=== PATIENT | female | born 1975 | race Caucasian/White ===

== ENCOUNTER 2017-11-13 03:49 | Day surgery (SDC) | payer BC, OTHER ==
[~2017-11-13] VITALS: Ht 182.9 cm; Wt 99.8 kg
[2017-11-13] MEDS ORDERED: LACTATED RINGERS 1,000 ML IV ONE ×2 (04:19→05:55)
--- NOTE | 2017-11-13 04:27 | ED Abdominal Pain ---
General Chief Complaint: Abdominal/GI Problems Stated Complaint: R AB PAIN Source of Information: Patient History of Present Illness Time Seen By Provider: 04:10 Initial Comments PT C/O SHARP RLQ PAIN SINCE YESTERDAY AFTERNOON C/O CHILLS SINCE LAST PM + NAUSEA, AND VOMITED AND HAD DIARRHEA X 1 JUST PRIOR TO ARRIVAL NO URINARY SYMPTOMS PT HAD BODY ACHES THE LAST COUPLE OF DAYS NO COUGH LAST ATE AT 1800 YESTERDAY PAIN IS WORSE WITH MOVEMENTS AND WALKING, STANDING UPRIGHT LMP--NOW. NORMAL. WITH VASECTOMY PT IS HERE VISITING FROM [place] Allergies and Home Medications Allergies Coded Allergies: cephalexin (Verified Allergy, Unknown, 11/13/17) Home Medications Levothyroxine Sodium 100 Mcg Tablet, (Reported) Liothyronine Sodium 5 Mcg Tablet, (Reported) Sertraline HCl 100 Mg Tablet, (Reported) Review of Systems Constitutional: see HPI, chills, malaise EENTM: No Symptoms Reported Respiratory: No Symptoms Reported Cardiovascular: No Symptoms Reported Gastrointestinal: See HPI, Abdominal Pain, Denies Constipated, Diarrhea, Nausea , Poor Appetite, Denies Poor Fluid Intake, Vomiting Genitourinary: No Symptoms Reported Musculoskeletal: no symptoms reported, No back pain Skin: no symptoms reported Psychiatric/Neurological: No Symptoms Reported Endocrine: No Symptoms Reported Hematologic/Lymphatic: No Symptoms Reported Past Thizsil-Qbvwbb-Cnvuoc Hx Patient Social History Alcohol Use: Denies Use Recreational Drug Use: No Smoking Status: Never a Smoker Recent Foreign Travel: No Contact w/Someone Who Travel: No Surgeries History of Surgeries: Yes Surgeries: Thyroidectomy Respiratory History of Respiratory Disorde: No Cardiovascular History of Cardiac Disorders: No Neurological History of Neurological Disord: No Reproductive System : No Female Reproductive Disorders: Denies Genitourinary History of Genitourinary Disor: No Gastrointestinal History of Gastrointestinal Di: No Musculoskeletal History of Musculoskeletal Dis: No Endocrine History of Endocrine Disorders: Yes (GOITER--S/P THYROIDECTOMY) Endocrine Disorders: Hypothyroidsim HEENT History of HEENT Disorders: No Cancer History of Cancer: No Psychosocial History of Psychiatric Problem: Yes Behavioral Health Disorders: Depression Physical Exam Vital Signs VS - Last 72 Hours, by Label 11/13/17 03:58 Temp 96.9 Pulse 111 Resp 20 B/P (MAP) 112/72 (85) Pulse Ox 96 O2 Delivery Room Air Capillary Refill : General Appearance: WD/WN, no apparent distress, other (WALKS SLIGHTLY BENT AT WAIST AND MOVES SLOWLY) HEENT: PERRL/EOMI Neck: normal inspection Respiratory: normal breath sounds, no respiratory distress, no accessory muscle use Cardiovascular: regular rate, rhythm, no murmur Gastrointestinal: soft, no organomegaly, no pulsatile mass, abnormal bowel sounds (RARE), No distended, guarding, rebound, tenderness, No hernia, No mass, other (+ ROVSING'S. + HEEL TAP. ) Extremities: normal inspection, normal capillary refill Back: no CVA tenderness Neurologic/Psychiatric: no motor/sensory deficits, alert, normal mood/affect, oriented x 3 Skin: normal color, warm/dry, No rash Progress/Results/Core Measures Results/Orders Lab Results Laboratory Tests Test 11/13/17 04:43 11/13/17 05:03 Range/Units White Blood Count 17.8 H 4.3-11.0 10^3/uL Red Blood Count 4.08 L 4.35-5.85 10^6/uL Hemoglobin 11.9 11.5-16.0 G/DL Hematocrit 36 35-52 % Mean Corpuscular Volume 89 80-99 FL Mean Corpuscular Hemoglobin 29 25-34 PG Mean Corpuscular Hemoglobin Concent 33 32-36 G/DL Red Cell Distribution Width 14.0 10.0-14.5 % Platelet Count 339 130-400 10^3/uL Mean Platelet Volume 10.0 7.4-10.4 FL Neutrophils (%) (Auto) 86 H 42-75 % Lymphocytes (%) (Auto) 8 L 12-44 % Monocytes (%) (Auto) 6 0-12 % Eosinophils (%) (Auto) 0 0-10 % Basophils (%) (Auto) 0 0-10 % Neutrophils # (Auto) 15.2 H 1.8-7.8 X 10^3 Lymphocytes # (Auto) 1.4 1.0-4.0 X 10^3 Monocytes # (Auto) 1.1 H 0.0-1.0 X 10^3 Eosinophils # (Auto) 0.0 0.0-0.3 10^3/uL Basophils # (Auto) 0.0 0.0-0.1 10^3/uL Neutrophils % (Manual) 89 % Lymphocytes % (Manual) 4 % Monocytes % (Manual) 5 % Eosinophils % (Manual) 0 % Basophils % (Manual) 0 % Band Neutrophils 0 % Reactive Lymphocytes 2 % Clumped Platelets Blood Morphology Comment NORMAL Sodium Level 139 135-145 MMOL/L Potassium Level 3.6 3.6-5.0 MMOL/L Chloride Level 105 98-107 MMOL/L Carbon Dioxide Level 23 21-32 MMOL/L Anion Gap 11 5-14 MMOL/L Blood Urea Nitrogen 11 7-18 MG/DL Creatinine 0.70 0.60-1.30 MG/DL Estimat Glomerular Filtration Rate > 60 BUN/Creatinine Ratio 16 Glucose Level 120 H 70-105 MG/DL Calcium Level 8.7 8.5-10.1 MG/DL Total Bilirubin 0.7 0.1-1.0 MG/DL Aspartate Amino Transf (AST/SGOT) 19 5-34 U/L Alanine Aminotransferase (ALT/SGPT) 18 0-55 U/L Alkaline Phosphatase 63 40-136 U/L Total Protein 6.9 6.4-8.2 GM/DL Albumin 4.1 3.2-4.5 GM/DL Amylase Level 19 L 25-125 U/L Lipase 4 L 8-78 U/L Serum Test, Qualitative NEGATIVE NEGATIVE Urine Color YELLOW Urine Clarity CLEAR Urine pH 6 5-9 Urine Specific Alexander 1.020 1.016-1.022 Urine Protein NEGATIVE NEGATIVE Urine Glucose (UA) NEGATIVE NEGATIVE Urine Ketones NEGATIVE NEGATIVE Urine Nitrite NEGATIVE NEGATIVE Urine Bilirubin NEGATIVE NEGATIVE Urine Urobilinogen 1 NORMAL MG/DL Urine Leukocyte Esterase NEGATIVE NEGATIVE Urine RBC (Auto) 4+ H NEGATIVE Urine RBC 5-10 H /HPF Urine WBC RARE /HPF Urine Squamous Epithelial Cells 0-2 /HPF Urine Crystals NONE /LPF Urine Bacteria TRACE /HPF Urine Casts NONE /LPF Urine Mucus MODERATE H /LPF Urine Culture Indicated NO My Orders Orders - TERI WAHL DO Ua Culture If Indicated (11/13/17 04:12) Saline Lock/Iv-Start (11/13/17 04:19) Ct Abd/Pelv W (Appendicitis) (11/13/17 04:19) Amylase (11/13/17 04:19) Cbc With Automated Diff (11/13/17 04:19) Comprehensive Metabolic Panel (11/13/17 04:19) Hcg,Qualitative Serum (11/13/17 04:19) Lipase (11/13/17 04:19) Ondansetron Injection (Zofran Injectio (11/13/17 04:30) Saline Lock/Iv-Start (11/13/17 04:19) Lactated Ringers (Lr 1000 Ml Iv Solution (11/13/17 04:19) Manual Differential (11/13/17 04:43) Iohexol Injection (Omnipaque 350 Mg/Ml 1 (11/13/17 05:45) Ns (Ivpb) (Sodium Chloride 0.9% Ivpb Bag (11/13/17 05:45) Ketorolac Injection (Toradol Injection) (11/13/17 06:00) Saline Lock/Iv-Start (11/13/17 05:55) Lactated Ringers (Lr 1000 Ml Iv Solution (11/13/17 05:55) Medications Given in ED Current Medications Medications Dose Ordered Sig/Joey Route Start Time Stop Time Status Last Admin Dose Admin Iohexol 100 ml ONCE ONCE IV 11/13/17 05:45 11/13/17 05:46 DC 11/13/17 05:37 100 ML Ketorolac Tromethamine 30 mg ONCE ONCE IVP 11/13/17 06:00 11/13/17 06:01 DC 11/13/17 06:10 30 MG Lactated Ringer's 1,000 ml @ 0 mls/hr Q0M ONCE IV 11/13/17 04:19 11/13/17 04:21 DC 11/13/17 04:45 1,000 MLS/HR Ondansetron HCl 4 mg ONCE ONCE IVP 11/13/17 04:30 11/13/17 04:32 DC 11/13/17 04:45 4 MG Sodium Chloride 100 ml ONCE ONCE IV 11/13/17 05:45 11/13/17 05:46 DC 11/13/17 05:37 80 ML Vital Signs/I&O Vital Sign - Last 12Hours 11/13/17 03:58 Temp 96.9 Pulse 111 Resp 20 B/P (MAP) 112/72 (85) Pulse Ox 96 O2 Delivery Room Air Diagnostic Imaging Comments CT ABDOMEN/PELVIS--ACUTE APPENDICITIS WITH 1.6 CM APPENDICOLITH--PER RADIOLOGIST VIA PHONE AT [phone] Reviewed: Reviewed by Me Departure Communication (Admissions) Progress Notes 0610--SPOKE WITH DR. CAPPS, ADVISES TO ADMIT PT, PLACE ON [address] AND HE WILL TAKE TO SURGERY LATER THIS MORNING Impression Impression: Primary Impression: Appendicitis Disposition: ADMITTED INPATIENT Condition: Stable Admissions Decision to Admit Reason: Admit from ER (General) Decision to Admit/Date: Nov 13, 2017 Time/Decision to Admit Time: 06:10 Departure-Patient Inst. Referrals: NO,LOCAL PHYSICIAN (PCP) Primary Care Physician TERI WAHL DO Nov 13, 2017 04:27
[2017-11-13] MEDS ORDERED: ONDANSETRON 4 MG/2 ML (SDV) Z0FRAN IVP ONE (04:30)
[2017-11-13 04:51] LABS: BASOPHILS % (AUTO) 0 % (0-10); EOSINOPHILS % (AUTO) 0 % (0-10); LYMPHOCYTES # (AUTO) 1.4 X 10^3 (1.0-4.0); LYMPHOCYTES % (AUTO) 8 % (12-44); MEAN CORPUSCULAR HEMOGLOBIN 29 PG (25-34); MEAN CORPUSCULAR HGB CONC 33 G/DL (32-36); MEAN CORPUSCULAR VOLUME 89 FL (80-99); MONOCYTES # (AUTO) 1.1 X 10^3 (0.0-1.0); MONOCYTES % (AUTO) 6 % (0-12); NEUTROPHILS # (AUTO) 15.2 X 10^3 (1.8-7.8); NEUTROPHILS % (AUTO) 86 % (42-75); PLATELET COUNT 339 10^3/uL (130-400); RED BLOOD COUNT 4.08 10^6/uL (4.35-5.85); WHITE BLOOD COUNT 17.8 10^3/uL (4.3-11.0)
[2017-11-13] MEDS ORDERED: LIOT5TAB3 (04:59)
[2017-11-13] MEDS ORDERED: LEVO100T79 (04:59)
[2017-11-13] MEDS ORDERED: SERT100T8 (04:59)
[2017-11-13 05:11] LABS: BILIRUBIN,URINE NEGATIVE (NEGATIVE); KETONES,URINE NEGATIVE (NEGATIVE); LEUKOCYTE ESTERASE ,URINE NEGATIVE (NEGATIVE); NITRITE,URINE NEGATIVE (NEGATIVE); PH,URINE 6 (5-9); PROTEIN,URINE NEGATIVE (NEGATIVE); UROBILINOGEN,URINE 1 MG/DL (NORMAL)
[2017-11-13 05:15] LABS: BAND NEUTROPHILS 0 %; BASOPHILS % (MANUAL) 0 %; EOSINOPHILS % (MANUAL) 0 %; LYMPHOCYTES % (MANUAL) 4 %; NEUTROPHILS % (MANUAL) 89 %; REACTIVE LYMPHOCYTES 2 %
[2017-11-13 05:17] LABS: WBC,URINE RARE /HPF
[2017-11-13 05:18] LABS: SQUAMOUS EPITHELIAL CELL,UR 0-2 /HPF
[2017-11-13 05:24] LABS: ALANINE AMINOTRANSFERASE 18 U/L (0-55); ALBUMIN 4.1 GM/DL (3.2-4.5); AMYLASE 19 U/L (25-125); ANION GAP 11 MMOL/L (5-14); ASPARTATE AMINO TRANSFERASE 19 U/L (5-34); BILIRUBIN,TOTAL 0.7 MG/DL (0.1-1.0); BLOOD UREA NITROGEN 11 MG/DL (7-18); BUN/CREATININE RATIO 16; CALCIUM 8.7 MG/DL (8.5-10.1); CARBON DIOXIDE 23 MMOL/L (21-32); CHLORIDE 105 MMOL/L (98-107); GFR ESTIMATED > 60; GLUCOSE 120 MG/DL (70-105); LIPASE 4 U/L (8-78); POTASSIUM 3.6 MMOL/L (3.6-5.0); SODIUM 139 MMOL/L (135-145); TOTAL PROTEIN 6.9 GM/DL (6.4-8.2)
[2017-11-13] MEDS ORDERED: IOHEXOL 350 MG/ML 100 ML (OMNIPAQUE 350) VIAL IV ONE (05:45)
[2017-11-13] MEDS ORDERED: NS 100 ML (IVPB) BAG IV ONE (05:45)
[2017-11-13] MEDS ORDERED: KETOROLAC 30 MG/ML VIAL IVP ONE (06:00)
[2017-11-13] MEDS ORDERED: fentaNYL INJECTION 100 MCG/2 ML AMP IVP STA (06:21)
[2017-11-13] MEDS ORDERED: CIPROFLOXACIN IV 400MG/200ML 200 ML IV ONE (06:30)
--- NOTE | 2017-11-13 07:56 | Diagnostic Imaging Report ---
PROCEDURE: CT abdomen and pelvis with contrast, rule out appendicitis. TECHNIQUE: Multiple contiguous axial images were obtained through the abdomen and pelvis after the administration of intravenous contrast. INDICATION: Abdominal pain with nausea and vomiting COMPARISON: None FINDINGS: The lung bases are clear. The liver appears unremarkable. The gallbladder is contracted which is nonspecific but may be postprandial. There is some fatty changes of the head of the pancreas. There is no biliary dilatation. The spleen and adrenal glands appear unremarkable. There is a cyst in the lateral right renal cortex. The kidneys are otherwise unremarkable in appearance. Ureters and bladder appear unremarkable. Uterus and adnexa appear unremarkable. The appendix is grossly abnormal in appearance. It is dilated to a diameter of about 22 mm. There is a 1.4 cm calcified appendicolith at the origin of the appendix with at least 2 or 3 additional small appendicoliths more distally in the appendix. There is a large amount of periappendiceal and pericecal inflammatory change with numerous prominent lymph nodes in the mesentery of the right lower quadrant. The appearance is consistent with acute appendicitis. There is no evidence of rupture or abscess at this time. There is a trace amount of free fluid in the pelvis which may be reactive. No evidence of bowel obstruction. Abdominal aorta appears normal in caliber. No acute osseous abnormality seen. IMPRESSION: 1. Acute appendicitis as described. There is an impacted appendicolith at the origin of the appendix with additional multiple appendicoliths present. There is no evidence of rupture or abscess at this time. There is a moderate amount of inflammatory change with prominent mesenteric lymph nodes in the right lower quadrant. These are likely reactive. 2. No additional significant abnormality is seen. 3. Not mentioned in the body of the report, there is a tiny fat-containing periumbilical hernia. Agree with [facility] interpretation Dictated by: Dictated on workstation # [id number]
[2017-11-13] MEDS ORDERED: fentaNYL INJECTION 100 MCG/2 ML AMP IVP PRN (08:30)
[2017-11-13] MEDS: metroNIDAZOLE 500 MG/100 ML IVPB (PRE-MIX) IV SCH ×2 (08:55→15:07)
[2017-11-13] MEDS: D5 NS W/KCL 20 MEQ/L 1,000 ML IV SCH ×2 (08:55→15:17)
[2017-11-13] MEDS: ONDANSETRON 4 MG/2 ML (SDV) Z0FRAN IVP PRN ×2 (09:00→17:01)
--- NOTE | 2017-11-13 09:37 | Progress Note-Pre Operative ---
Pre-Operative Progress Note H&P Reviewed The H&P was reviewed, patient examined and no changes noted. Date Seen by Provider: Nov 13, 2017 Time Seen by Provider: 09:20 Date H&P Reviewed: Nov 13, 2017 Time H&P Reviewed: 09:30 Pre-Operative Diagnosis: Acute appendicitis JENY LONG APRN Nov 13, 2017 9:37 am
--- NOTE | 2017-11-13 10:36 | HISTORY AND PHYSICAL ---
DATE OF SERVICE: HISTORY OF PRESENT ILLNESS: The patient is a 42-year-old female, who presented early this morning to the Emergency Department with right lower abdominal quadrant pain. She reported the pain started in the afternoon and was associated with nausea and vomiting as well as one episode of diarrhea. She reported that she had body aches several days before. The patient is visiting the area from the [facility]. A CT scan was performed, which showed a dilated appendix as well as periappendiceal fat stranding consistent with an acute appendicitis. PAST MEDICAL HISTORY: Thyroid, goiter, depression. PAST SURGICAL HISTORY: Total thyroidectomy. ALLERGIES: CEPHALEXIN. MEDICATIONS: Levothyroxine 100 mcg daily, liothyronine 5 mcg daily, sertraline 100 mg daily. SOCIAL HISTORY: Negative smoke, negative alcohol. FAMILY HISTORY: Noncontributory. VITAL SIGNS: Temperature 96.9, pulse 111, respirations 20, pulse ox 96% on room air. REVIEW OF SYSTEMS: Well-nourished female currently in no acute distress. She is not experiencing shortness of breath or difficulty breathing. No chest pain, palpitations, diaphoresis. The previous nausea; however, none now. One episode of diarrhea, no red blood per rectum, no dark tarry stools. Mild fevers and chills. No recent inadvertent weight loss. PHYSICAL EXAMINATION: CHEST: Clear. Good breath sounds bilaterally. HEART: Regular, no murmurs. EXTREMITIES: No lower extremity edema, negative Homans' sign. HEENT: No scleral icterus. No cervical lymphadenopathy. ABDOMEN: Soft, nondistended. There is pain in the right lower abdominal quadrant at McBurney's point with voluntary guarding, no rebound. SKIN: Warm, dry. LABORATORY DATA: WBC 17.8, hemoglobin 11.9, hematocrit 36, platelets 339. BUN 11, creatinine 0.70. ASSESSMENT AND PLAN: A 42-year-old female with acute appendicitis. The natural history of appendicitis was explained to the patient as well as the risks and benefits of surgery. She is in full understanding of these and would like to proceed with laparoscopic appendectomy, which we will proceed with. Job ID: [id number] DocumentID: [id number] Dictated Date: 11/13/2017 09:30:56 Electrical Logging Operator Date: 11/13/2017 10:34:53 Dictated By: CRISTIANO CAPPS MD
[2017-11-13] MEDS ORDERED: BUP/EPI 0.5% 1:200,000 (MARCAINE) 10ML VIAL IJ ONE (10:43)
[2017-11-13] MEDS: LACTATED RINGERS 1,000 ML IV PRN ×2 (10:50→11:26)
[2017-11-13] MEDS ORDERED: ROCURONIUM 50 MG/5 ML (ZEMURON) VIAL IV ONE (10:53)
[2017-11-13] MEDS ORDERED: proPOfol 200 MG/20 ML (DIPRIVAN) VIAL IV ONE (10:53)
[2017-11-13] MEDS ORDERED: ONDANSETRON 4 MG/2 ML (SDV) Z0FRAN ONE (10:53)
[2017-11-13] MEDS ORDERED: LIDOCAINE PF 2% 5 ML (XYLOCAINE) VIAL ONE (10:53)
[2017-11-13] MEDS ORDERED: fentaNYL INJECTION 100 MCG/2 ML AMP ONE ×2 (10:53→12:23)
[2017-11-13] MEDS ORDERED: MIDAZOLAM 2 MG/2 ML (VERSED) VIAL ONE (10:53)
[2017-11-13] MEDS ORDERED: SEVOFLURANE (ULTANE) 15 ML INHAL SOLN ONE ×6 (10:56→12:25)
[2017-11-13] MEDS ORDERED: PANT40TA2 PO (11:03)
--- NOTE | 2017-11-13 11:05 | Discharge Inst-Surgical ---
D/C Lap Instructions-GÉNESIS New, Converted, or Re-Newed RX: RX on Chart Follow Up with PMD 2 weeks. Activity as tolerated No driving for 24 hours No driving while on pain medications Incentive Spirometry use every 2 hours while awake Regular Diet Symptoms to Report: Fever over 101 degree F, Nausea/Vomiting Infection Signs and Symptoms to report: Increased redness, Foul odor of wound, Increased drainage Bathing instructions: May shower Operative Area Clean/Dry; Keep incision clean/dry If any problems/questions: Contact your physician or go to Emergency Room CRISTIANO CAPPS MD Nov 13, 2017 11:05 am
[2017-11-13] MEDS ORDERED: morphine INJ 10 MG/ML 1ML (SYR OR VIAL) ONE (11:06)
[2017-11-13] MEDS ORDERED: HYDR-3816 PO (11:06)
[2017-11-13] MEDS ORDERED: MEPERIDINE (DEMEROL) INJ 50 MG/ML ONE (11:07)
[2017-11-13] MEDS ORDERED: DEXAMETHASONE 10 MG/ML (DECADRON) 1 ML VIAL ONE (12:25)
--- NOTE | 2017-11-13 12:37 | Progress Note-Post Operative ---
Post-Operative Progess Note Surgeon (s)/Honey Producer (s) Surgeon CRISTIANO CAPPS MD Honey Producer: shirlene aj PERMASTONE INSTALLER Pre-Operative Diagnosis Acute appendicitis Post-Operative Diagnosis same Procedure & Operative Findings Date of Procedure 11/13/17 Procedure Performed/Findings laparoscopic appendectomy Anesthesia Type GET Estimated Blood Loss Estimated blood loss (mL): minimal Specimens/Packing Specimens Removed appendix CRISTIANO CAPPS MD Nov 13, 2017 12:37 pm
[2017-11-13] MEDS ORDERED: HYDROcodone/APAP 7.5 MG/325 MG (LORTAB, LORCET PLUS) TABLET PO PRN (12:45)
[2017-11-13] MEDS: morphine INJ 10 MG/ML 1ML (SYR OR VIAL) IVP PRN ×2 (12:55→13:05)
[2017-11-13] MEDS ORDERED: MEPERIDINE (DEMEROL) INJ 50 MG/ML IVP PRN (13:00)
[2017-11-13] MEDS ORDERED: ONDANSETRON 4 MG/2 ML (SDV) Z0FRAN IVP PRN (13:00)
[2017-11-13 13:45] VITALS: BP 96/51
[2017-11-13 15:35] VITALS: BP 107/58
--- NOTE | 2017-11-13 18:10 | OPERATIVE REPORT ---
DATE OF SERVICE: 11/13/2017 PREOPERATIVE DIAGNOSIS: Acute appendicitis. POSTOPERATIVE DIAGNOSIS: Acute appendicitis. PROCEDURE: Laparoscopic appendectomy. SURGEON: Cristiano Capps M.D. OPERATING ROOM REGISTERED NURSE: Ej Irwin APRN. ANESTHESIA: General endotracheal. ESTIMATED BLOOD LOSS: 50 mL. FINDINGS: Severely inflamed and edematous appendix with no perforation identified. DISPOSITION: The patient tolerated the procedure well. INDICATIONS: The patient is a 42-year-old female, who is visiting this area for the holidays. She resides just outside of the [place], [place]. She reports that she felt flu-like symptoms for the past 2 days with body aches and joint pain as well as potentially mild fevers. She states that yesterday, the pain became more severe and localized to the right lower abdominal quadrant. She was seen in Emergency Department where a CT scan was performed, which showed a significantly enlarged appendix with periappendiceal fat stranding consistent with an acute appendicitis. She also had an elevated white count of 17. DESCRIPTION OF PROCEDURE: The patient was brought to the operating room, laid supine on the table. After adequate IV pain and sedative medications and general endotracheal intubation, the abdomen was prepped and draped in standard surgical fashion. A 0.5% Marcaine with epinephrine was then used to anesthetize the overlying skin in the left upper abdominal quadrant. A small transverse skin incision made using a 15-blade. An 0 silk suture was applied to the medial aspect of the incision for retraction and Veress needle inserted with a low opening pressure of 0 mmHg and the abdomen was then insufflated to 15 mmHg pressure. The Veress needle removed and a 5 mm trocar placed followed by a 5 mm 45 degree angle laparoscope visualizing the peritoneal cavity. A 4-quadrant abdominal exploration was performed. A significantly dilated appendix was identified; however, intact and no perforation identified. What was visualized of the uterus, ovaries, remainder of the omentum, small bowel and colon appeared normal. Under direct visualization, we then proceeded to place a supraumbilical 10 mm port after the skin and peritoneum were anesthetized using 0.5% Marcaine with epinephrine and a transverse skin incision made using a 15-blade. In a similar manner, a suprapubic 5 mm port was placed. The patient was then placed in Trendelenburg position as well as plane right side up, left side down. The appendix was then bluntly dissected out and retracted towards the anterior abdominal wall. A window was then created between the mesoappendix and the base of the appendix at the cecum. There was significant dilatation of the appendix. Due to this as well as the inflammation of the mesoappendix, we first proceeded with staple and transection of the mesoappendix with a AYDEE 45 mm stapler with a 2.0 mm thickness load. Good hemostasis was observed. We then proceeded to dissect some of the inflammatory tissue around the base of the appendix. We then proceeded with stapling and transection of the appendix at the cecal base encompassing a wedge of the cecum as well using a AYDEE 45 mm stapler with a 2.5 mm thickness reloads. Good hemostasis was observed. The appendix was removed through the 10 mm port site using an EndoCatch bag. The area was then copiously irrigated and suctioned out with visualization of good hemostasis. The 10 mm port site fascia and peritoneum were then closed under direct visualization using a Patricio-Es device and 0 Vicryl suture. The abdomen was desufflated and remaining ports removed. All skin incisions were closed using 4-0 Monocryl running subcuticular sutures. Wounds were then cleaned and covered with Dermabond. The patient tolerated the procedure well. We will start IV and oral pain medication as well as a clear liquid diet. Once she is tolerating clears and has good pain control with oral pain medications and ambulating well, we will discharge her home. She states that she does have the next week off and once she returns home, she will follow up with her primary care physician approximately 2 weeks from the surgery date. We will also proceed with oral Cipro and Flagyl for the next 7 days. Job ID: [id number] DocumentID: [id number] Dictated Date: 11/13/2017 12:48:51 Donor Specialist Date: 11/13/2017 14:27:44 Dictated By: CRISTIANO CAPPS MD [facility]
[2017-11-13] MEDS ORDERED: CIPROFLOXACIN 400 MG/D5W 200 ML (PRE-MIX) IV SCH (21:00)
== END 2017-11-13 18:05 | disposition home or self-care (01) ==
LOC: EDUNIT# 03:49 → ER 03:54 → 4TH 06:10 → SDC 06:10 → UNDOADMOB 06:10 → SDC 18:05 → UNDODISOB 18:05
PROVIDERS: ATTEND Surgery
DX: K35.80 Unspecified acute appendicitis (principal); E03.9 Hypothyroidism, unspecified; F32.9 Major depressive disorder, single episode, unspecified; Z79.899 Other long term (current) drug therapy
CPT/HCPCS: 36415; 74177; 80053; 81000; 82150; 83690; 84703; 85007; 85027